=== PATIENT | male | born 1985 | race Caucasian/White ===

== ENCOUNTER → 2018-06-05 14:52 | Outpatient (CLI) | payer OTHER, SELFPAY ==
--- NOTE | 2018-06-05 | DI.RAD.S_ITS ---
PROCEDURE: XR CHEST 2V INDICATIONS: CHEST AND SHOULDER PAIN TECHNIQUE: 2 views of the chest were acquired. COMPARISON: [facility], , CHEST 1 VIEW, 08/25/2016, 3:17. FINDINGS: Surgical changes and devices: None. Lungs and pleura: No pleural effusions or pneumothorax. Lungs are clear. Mediastinum: Mediastinal contours are normal. Heart size is normal considering pectus excavatum chest wall morphology.. Bones and chest wall: No suspicious bony abnormalities. Soft tissues appear unremarkable. IMPRESSION: False positive appearance of trauma to the cardiac silhouette due to the morphology of the chest (pectus morphology). This is best seen on the lateral view. No source of current pain is found. Dictated by: Eh Higuera M.D. on 06/05/2018 at 15:50 Approved by: Eh Higuera M.D. on 06/05/2018 at 15:50
== END ==
PROVIDERS: Visit Provider Internal Medicine
DX: R07.9 Chest pain, unspecified (principal); M25.519 Pain in unspecified shoulder
CPT/HCPCS: 71046

== ENCOUNTER → 2018-10-15 16:09 | Outpatient (CLI) | payer OTHER, SELFPAY ==
--- NOTE | 2018-10-15 16:20 | DI.US.S_ITS ---
PROCEDURE: US SCROTUM INDICATIONS: LEFT TESTICULAR PAIN TECHNIQUE: Real-time scanning was performed of the scrotum and testicles, with image documentation. Color and pulse Doppler interrogation was performed of both testicles. COMPARISON: None. FINDINGS: Right: Testicle is normal in size at 4.5 x 2.6 x 1.9 cm, and homogenous in echotexture. There is a 5 mm possible epididymal cyst/spermatocele. There are low level internal echoes potentially representing debris. No internal vascularity seen. No varicocele. Small hydrocele noted. Overlying scrotal skin is normal in thickness. Left: Testicle is normal in size at 4.2 x 2.6 x 1.8 cm, and homogeneous in echotexture. Increased epididymal vascularity is noted, compared to the contralateral right side. Small hydrocele. No varicoceles. Overlying scrotal skin is normal in thickness. Doppler: Color and pulse Doppler demonstrate normal and symmetric arterial flow in both testicles. IMPRESSION: Hyperemic appearance of the left epididymis suggestive of acute epididymitis. Please correlate clinically and with urinalysis data. Findings provided to the referring clinician Josy SOTO by the meat process worker at the time the study on 10/15/18. Bilateral small hydroceles. Presumed small cyst/spermatocele involving the right epididymis. Dictated by: Ramon Andrade M.D. on 10/15/2018 at 17:16 Approved by: Ramon Andrade M.D. on 10/15/2018 at 17:20
[2018-10-15 17:11] LABS: Bacteria Urine None Seen; RBC Urine None Seen (0-5/HPF)
[2018-10-15 17:24] LABS: Appearance Urine UA CLEAR; Bilirubin Urine UA NEGATIVE (NEGATIVE); Color Urine UA YELLOW; Glucose Urine UA NEGATIVE (Negative); Ketones Urine UA NEGATIVE (NEGATIVE); Leukocyte Esterase Urine UA NEGATIVE (NEGATIVE); Nitrite Urine UA NEGATIVE (Negative); Occult Blood Urine UA NEGATIVE (Negative); Protein Urine UA NEGATIVE (Negative); Specific Gravity Urine UA 1.015 (1.000-1.035); Urobilinogen Urine UA 0.2 E.U./dL (0.2)
[2018-10-15 17:46] LABS: Squamous Epithelial Cell Urine 0-1 /HPF; WBC Urine 0-1/HPF (0-5/HPF)
[2018-10-15 17:47] LABS: Culture Indicated Urine Cult Not Indicated
[2018-10-15 19:00] LABS: Urine N gonorrhoeae NOT DETECTED
[2018-10-15 19:02] LABS: Urine Chlamydia NOT DETECTED
== END ==
PROVIDERS: Visit Provider Physician Assistant
DX: N50.812 Left testicular pain (principal); N43.3 Hydrocele, unspecified
CPT/HCPCS: 76870; 81001; 87491; 87591

== ENCOUNTER → 2019-01-24 11:53 | Outpatient (ROUT) | payer OTHER, SELFPAY ==
[2019-01-24 13:24] LABS: Urine N gonorrhoeae NOT DETECTED
[2019-01-24 13:50] LABS: Urine Chlamydia NOT DETECTED
== END ==
PROVIDERS: Visit Provider Physician Assistant
DX: L29.3 Anogenital pruritus, unspecified (principal)
CPT/HCPCS: 87491; 87591

== ENCOUNTER → 2019-12-26 16:12 | Outpatient (CLI) | payer OTHER, SELFPAY ==
[2019-12-27 04:18] LABS: COVID19 Sendout Not Detected (Not Detect)
== END ==
PROVIDERS: Visit Provider Physician Assistant
DX: Z11.59 Encounter for screening for other viral diseases (principal)
CPT/HCPCS: 87635